=== PATIENT | female | born 1945 | race Caucasian/White ===

== ENCOUNTER 2024-03-31 08:11 | Outpatient (CLI) | payer OTHER, MEDICAID, SELFPAY ==
--- NOTE | 2024-03-31 09:36 | W.ANESCHARGE ---
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
--- NOTE | 2024-03-31 09:40 | W.ANESCHARGE ---
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
--- NOTE | 2024-03-31 10:09 | W.ANESCHARGE ---
Anesthesia Charges Start Date/Time Anesthesia Start Date: 03/31/24 Anesthesia Start Time: 09:17 Stop Date/Time Anesthesia Stop Date: 03/31/24 Anesthesia Stop Time: 09:37 Summary Extremes of Age - Over 70 or under 1: MDA
== END 2024-03-31 08:12 | disposition home or self-care (01) ==
PROVIDERS: Visit Provider Internal Medicine Gastroenterology
DX: R13.10 Dysphagia, unspecified (principal); K44.9 Diaphragmatic hernia without obstruction or gangrene; K31.89 Other diseases of stomach and duodenum
CPT/HCPCS: 00731; 43239; 88305; 99100; J2704; J3010